=== PATIENT | male | born 1945 | race Caucasian/White ===

== ENCOUNTER 2022-08-13 13:10 | Outpatient (CLI) | payer MEDICARE, SELFPAY ==
--- NOTE | ~2022-08-13 | MM_ITS ---
EXAMINATION: MM diagnostic mammo unilat RT HISTORY: Subareolar right breast pain TECHNIQUE: Full field digital craniocaudal and mediolateral oblique views of the right breast were ob tained. A comparison for field mediolateral oblique view of the left breast was obtained. CAD analysi s was submitted and interpreted. COMPARISON: No prior mammogram is available for comparison at this institution. BREAST PARENCHYMAL COMPOSITION: The breasts are almost entirely fatty. FINDINGS: There is flame-shaped subareolar density in both breasts, right greater than left, with an appearance consistent with gynecomastia. No suspicious cystic or solid mass is identified. IMPRESSION: 1. Findings consistent with asymmetric gynecomastia on the right. Clinical follow-up is recommended. BI-RADS Category 2: Benign finding(s). Reviewed, dictated and finalized at location A. IMPRESSION: 1. Findings consistent with asymmetric gynecomastia on the right. Clinical foll ow-up is recommended. BI-RADS Category 2: Benign finding(s).
== END 2022-08-13 13:11 | disposition home or self-care (01) ==
PROVIDERS: PCP Family Medicine; Visit Provider Family Medicine
DX: N64.4 Mastodynia (principal)
CPT/HCPCS: 77065

== ENCOUNTER 2022-12-08 08:57 | Observation (INO) | payer MEDICARE, SELFPAY ==
[2022-12-08] VITALS (11 sets, daily range): BP systolic 100–136; BP diastolic 49–55; PULSE 46–66; RESP 11–18; TEMP 36.9–37; O2SAT 96–99; BMI 25.8
--- NOTE | ~2022-12-08 | CT_ITS ---
EXAMINATION: CT brain wo con DATE: 12/08/2022 09:40 INDICATION: Altered mental status TECHNIQUE: Computed tomography (CT) of the head was performed without intravenous contrast. Sagittal and coronal reconstructions were performed. The mA was adjusted according to patient size. Iterative reconstruction technique was employed. The dose-length product was 681.00 mGy-cm. COMPARISON: None FINDINGS: No acute intracranial hemorrhage, acute infarction or abnormal extra axial fluid collection. There is moderate scattered white matter hypoattenuation consistent with chronic small vessel ischemic diseas e. Symmetric prominence of the sulci and ventricles consistent with mild age-appropriate diffuse cere bral volume loss. No mass/mass effect. Changes of bilateral intraocular lens replacement. The orbits, paranasal sinuses and mastoid air cells are normal. IMPRESSION: 1. No acute intracranial process. 2. Age-related changes including mild diffuse volume loss and moderate scattered white matter hypoatt enuation consistent with chronic small vessel ischemic disease. Reviewed, dictated and finalized at location A. MS ATTORNEY IMPRESSION: 1. No acute intracranial process. 2. Age-related changes including mild diffuse volume loss and moderate scattere d white matter hypoattenuation consistent with chronic small vessel ischemic di sease.
--- NOTE | ~2022-12-08 | XR_ITS ---
XR chest 2V 12/08/2022 09:45 Indication: Weakness and fatigue. Nausea. Procedure: 2 view chest Comparison: 01/17/2013 Findings: Heart size normal. No focal air space disease, pulmonary edema, pleural effusion or suspect ed pneumothorax. No acute osseous abnormality. 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 Impression: 1: No acute cardiopulmonary disease. Reviewed, dictated and finalized at location B. PREVENTION COORDINATOR Impression: 1: No acute cardiopulmonary disease.
--- NOTE | 2022-12-08 09:13 | ECG_ITS ---
Measurements Intervals Elaine Rate: 46 P: 22 TX: 163 QRS: 51 QRSD: 95 T: 70 QT: 489 QTc: 428 Interpretive Statements SINUS BRADYCARDIA NO PREVIOUS ECG AVAILABLE FOR COMPARISON Electronically Signed On 12-08-2022 15:01:01 [employer] by Abdulaziz Wells M.D.
--- NOTE | 2022-12-08 10:03 | ED.WEAKNESS ---
HPI - Weakness General Chief complaint: Weakness <Meka Urbina PA-C - Last Filed: 12/08/22 14:02> Stated complaint: LETHARGIC AFTER BREAKFAST <Meka Urbina PA-C - Last Filed: 12/08/22 14:02> Time Seen by Provider: 12/08/22 09:12 <Meka Urbina PA-C - Last Filed: 12/08/22 14:02> Source: patient, family and EMS <RITA Landrum Last Filed: 12/08/22 14:02> Mode of arrival: EMS <RITA Landrum Last Filed: 12/08/22 14:02> Limitations: dementia <RITA Landrum Last Filed: 12/08/22 14:02> History of Present Illness HPI Narrative: This is a 77 year old male that presents to the ER for an episode of altered mentation this morning. Reportedly patient was found to be lethargic at breakfast with vomit on his clothing. Patient's daughter is at bedside who reports he has had a steady decline in his mental status over the last several weeks. Reports they saw his neurologist about a week ago and he was started on Propranolol for a worsening tremor. He lives at [facility]. They report he does deal with all of his medications independently, but they have a medication dispenser that only allows him to take the medications that he is due for onyl at the correct times. Patient has no complaints currently. <Meka Urbina PA-C - Last Filed: 12/08/22 14:02> Related Data Home medications: Home Medications Medication Instructions Recorded Confirmed donepezil 10 mg tablet 10 mg PO HS 12/08/22 12/08/22 escitalopram oxalate 20 mg tablet 20 mg PO DAILY 12/08/22 12/08/22 gabapentin 400 mg capsule 400 mg PO TID 12/08/22 12/08/22 meclizine 25 mg tablet 25 mg PO BID 12/08/22 12/08/22 memantine 10 mg tablet 10 mg PO BID 12/08/22 12/08/22 montelukast 10 mg tablet 10 mg PO DAILY 12/08/22 12/08/22 trazodone 150 mg tablet 150 mg PO HS 12/08/22 12/08/22 triamcinolone acetonide 0.1 % 0.1 applic topical BID PRN Dry Skin 12/08/22 12/08/22 topical cream <Meka Urbina PA-C - Last Filed: 12/08/22 14:02> Allergies/Adverse reactions: Allergies Allergy/AdvReac Type Severity Reaction Status Date / Time No Known Allergies Allergy Unverified 12/08/22 10:18 <Meka Urbina PA-C - Last Filed: 12/08/22 14:02> Review of Systems Review of Systems: ROS unobtainable: Yes unobtainable due to mental status (dementia) <Meka Urbina PA-C - Last Filed: 12/08/22 14:02> [facility] Past Medical History Medical History: Medical History (Updated 12/08/22 @ 13:58 by Meka Urbina PA-C) History of dementia <Meka Urbina PA-C - Last Filed: 12/08/22 14:02> Social History Social History: Social History (Updated 12/08/22 @ 10:12 by Meka Urbina PA-C) Smoking status: Former smoker Alcohol intake: former Substance use: never Spiritual care concerns: No <Meka Urbina PA-C - Last Filed: 12/08/22 14:02> Exam Narrative: GENERAL: Elderly, well-nourished, and in no acute distress. HEAD: Normocephalic, atraumatic. EYES: PERRLA and EOMI. ENT: Nares clear, no rhinorrhea or epistaxis. Mucous membranes moist. Oropharynx without tonsillar hypertrophy exudate or other lesions. Bilateral TMs pearly marley non-bulging NECK: Supple. No adenopathy or masses. CHEST: Clear to auscultation. No respiratory distress. No wheezes rales or rhonchi HEART: Regular rate and rhythm. No murmur heard. Normal peripheral pulses. ABDOMEN: Soft, nontender, nondistended, normal active bowel sounds. EXTREMITIES: Normal range of motion. No edema or obvious deformity. SKIN: Warm, dry, no rash. NEURO: No focal deficits. Alert and oriented x1. CN II-XII grossly intact PSYCH: Flat mood and affect <Meka Urbina PA-C - Last Filed: 12/08/22 14:02> Course Course Emergency Course: Patient and family updated on work-up and need for admission <Meka Urbina PA-C - Last Filed: 12/08/22 14:02> DIRECTOR INPATIENT HEADACHE PROGRAM/PA Physician Supervision Patient is a 77-year-old mal
[2022-12-08] MEDS: SODIUM CHLORIDE 0.9% IV 1,000 ML 999 ML IV CONT (10:16)
[2022-12-08 10:42] LABS: Basophils Percent Auto 0.4 % (0.2-1.2); Eosinophils Absolute Auto 0.1 K/mm3 (0-0.3); Eosinophils Percent Auto 1.8 % (0-4.4); Hematocrit 40.2 % (42.0-52.0); Immature Granulocyte Absolute 0.03 K/mm3 (0.00-0.031); Immature Granulocyte Percent A 0.4 % (0-0.5); Lymphocytes Absolute Auto 0.98 K/mm3 (0.9-3.2); Lymphocytes Percent Auto 14.6 % (18.3-44.2); Mean Corpuscular HGB Conc 32.3 g/dl (32-36); Mean Corpuscular Hemoglobin 30.4 pg (26-34); Mean Corpuscular Volume 93.9 fl (80-100); Mean Platelet Volume 9.5 fl (7.4-10.4); Monocytes Absolute Auto 0.5 K/mm3 (0.1-0.6); Monocytes Percent Auto 7.2 % (2.6-8.5); Neutrophils Absolute Auto 5.1 K/mm3 (1.3-6.7); Neutrophils Percent Auto 75.6 % (45.5-73.1); Platelet Count Result 225 k/mm3 (150-375); Red Blood Count 4.28 M/mm3 (4.6-6.20); Red Cell Distribution Width 13.2 % (11.5-14.5); White Blood Count 6.7 K/mm3 (4.5-10.0)
[2022-12-08 10:50] LABS: Magnesium 2.2 mg/dL (1.6-2.3)
[2022-12-08 10:52] LABS: Lactic Acid Reflex 1.2 mmol/L (0.7-2.0)
[2022-12-08 10:53] LABS: Alanine Aminotransferase 17 U/L (6-50); Albumin Level 4.1 g/dL (3.5-5.1); Alkaline Phosphatase 59 U/L (38-126); Anion Gap 5 mmol/L (8-16); Aspartate Amino Transferase 24 U/L (17-59); Bilirubin,Total 0.8 mg/dL (0.2-1.3); Blood Urea Nitrogen 17 mg/dL (9-20); Calcium 8.4 mg/dL (8.4-10.2); Carbon Dioxide 28 mmol/L (22-30); Chloride 101 mmol/L (98-107); Estimated CRCL calculation 64 ml/min; Estimated Glomerular Filt Rate > 60; Glucose 111 mg/dL (65-110); Potassium 4.3 mmol/L (3.4-5.0); Sodium 134 mmol/L (137-145)
[2022-12-08 11:04] LABS: Influenza A QL RT-PCR Negative (Negative); Influenza B QL RT-PCR Negative (Negative); SARS-CoV-2 RNA PCR Negative
--- NOTE | 2022-12-08 12:19 | PC.NURSE ---
Patient ambulated to the BR with standby assistance. Steady gait. Urine sample obtained.
[2022-12-08 12:24] LABS: Appearance Urine Clear (Clear); Bilirubin Urine Negative (Negative); Blood Urine Negative (Negative); Color Urine Yellow (Yellow); Glucose Urine UA Negative (Negative); Ketones Urine Negative (Negative); Leukocyte Esterase Ur Negative LEU/UL (Negative); Nitrate Urine Negative (Negative); Protein Urine 1+ mg/dL (Negative)
[2022-12-08 12:31] LABS: Add Urine Microscopic? YES; Amorphous Sediment Urine Few; Bacteria Urine Trace /hpf; Mucus Urine Heavy /lpf; Squamous Epithelial Cell Urine Rare /hpf (Few); WBC Urine 0-3 /hpf
--- NOTE | 2022-12-08 14:21 | PC.NURSE ---
This patient, Lucien Martinez, was admitted to 2 Medical Room 252-. Patient/family oriented to hospital policies and general routines including ID bracelet, bed and alarms, visiting hours, pain management, procedures, bathroom and other care routines, personal items, smoking policy, room service/diet, and visiting hours. Information on how to activate the Rapid Response Team has been discussed. Patient/Family are encouraged to report perceived risks to care and to ask questions if they do not understand what they are told or what they should do.
--- NOTE | 2022-12-08 19:12 | PM.IMHP ---
H&P: HPI History of Present Illness Date/Time: 12/08/22 19:12 Chief Complaint: Weakness Narrative: This is a 77-year-old male patient emergency room with complaints of altered mental status. The patient does have a history of dementia. However his mentation was altered this morning. The patient was found to be very lethargic echo breakfast with vomit on his clothing. The patient's daughter stated that his mental status has been declining over the last several weeks. The patient lives at [facility]. The patient was recently started on propranolol for hand tremors. It was reported that the patient does not had was medication and that the patient has a medication dispenser which only allows the patient's take his medication at a certain time. The patient has expressive aphasia. His H&H is 13.0 and 40.2. Neutrophils 75.6. Sodium 134. He was negative for influenza A/B and COVID. Head CT was read as the following1. No acute intracranial process. 2. Age-related changes including mild diffuse volume loss and moderate scattered white matter hypoattenuation consistent with chronic small vessel ischemic disease. Patient's EKG was consistent with sinus bradycardia. EKG shows is sinus bradycardia. Patient's heart rate is now in the 60s. Patient is awake and talkative. The patient is being admitted for observation status on the date of service of 12/08/2022. Review of Systems Review of Systems: See HPI All systems reviewed & are unremarkable except as noted in HPI and below Constitutional: Constitutional: Reports as per HPI and Reports no additional constitutional complaints Eyes: Eyes: Reports as per HPI and Reports no additional eye complaints ENT: Reports system reviewed and no additional complaints, except as documented and Reports Normal hearing present Cardiovascular: Cardiovascular: Reports no additional cardiovascular complaints Respiratory: Respiratory: Reports no additional respiratory complaints and Reports no additional respiratory complaints Gastrointestinal: Gastrointestinal: Reports as per HPI and Reports no additional gastrointestinal complaints Musculoskeletal: Musculoskeletal: Reports no additional musculoskeletal complaints Integumentary/Breasts: Skin/Breast: Reports system reviewed and no additional complaints, except as docu and Reports as per HPI Neurologic: Reports system reviewed and no additional complaints, except as documented, Reports as per HPI and Reports Normal hearing present Psychiatric: Psychiatric: Reports no additional psychiatric complaints and Reports as per HPI Endocrine: Endocrine: Reports no additional endocrine complaints Hematologic/Lymphatic: Hematologic/Lymphatic: Reports no additional hematologic/lymphatic complaints Allergic/Immunologic: Allergic/Immunologic: Reports no additional allergic/immunologic complaints [facility] Past Medical History Medical History (Updated 12/08/22 @ 23:43 by Yakelin Carlos NP) Asthma Dementia Depression with anxiety History of dementia Intention tremor Vertigo Surgical History Surgical History (Updated 12/08/22 @ 23:31 by Yakelin Carlos NP) H/O cataract extraction H/O Spinal surgery Family History Family History (Updated 12/08/22 @ 23:32 by Yakelin Carlos NP) Unknown No problems noted. Social History Social History (Updated 12/08/22 @ 23:34 by Yakelin Carlos NP) Social History: The patient is . He has 2 children. 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 He has 2 daughters listed as his contacts and Agata Doyle is the power erisa attorney. Code status full code Smoking status: Former smoker Alcohol intake: former Substance use: never Spiritual care concerns: No Meds Home Medications and Allergies Home Medications Medication Instructions Recorded Confirmed Type donepezil 10 mg tablet 10 mg PO HS 12/08/22 12/08/22 History escitalopram oxalate 20 mg tablet 20 m
[2022-12-09] VITALS (8 sets, daily range): BP systolic 122–131; BP diastolic 51–65; PULSE 61–72; RESP 16–18; TEMP 36.6–37.2; O2SAT 97–98
[2022-12-09] MEDS: traZODone HCL 50 MG TABLET 150 MG PO (00:07)
[2022-12-09] MEDS: MEMANTINE 10 MG TABLET PO ×2 (00:08→08:06)
[2022-12-09] MEDS: DONEPEZIL HCL 10 MG TABLET PO (00:09)
[2022-12-09 06:02] LABS: Basophils Percent Auto 0.3 % (0.2-1.2); Eosinophils Absolute Auto 0.1 K/mm3 (0-0.3); Eosinophils Percent Auto 1.8 % (0-4.4); Hematocrit 36.4 % (42.0-52.0); Hemoglobin 12.2 g/dL (14.0-18.0); Immature Granulocyte Absolute 0.02 K/mm3 (0.00-0.031); Immature Granulocyte Percent A 0.3 % (0-0.5); Lymphocytes Absolute Auto 1.56 K/mm3 (0.9-3.2); Lymphocytes Percent Auto 23.4 % (18.3-44.2); Mean Corpuscular HGB Conc 33.5 g/dl (32-36); Mean Corpuscular Hemoglobin 30.4 pg (26-34); Mean Corpuscular Volume 90.8 fl (80-100); Mean Platelet Volume 9.8 fl (7.4-10.4); Monocytes Absolute Auto 0.7 K/mm3 (0.1-0.6); Monocytes Percent Auto 10.2 % (2.6-8.5); Neutrophils Absolute Auto 4.3 K/mm3 (1.3-6.7); Platelet Count Result 209 k/mm3 (150-375); Red Blood Count 4.01 M/mm3 (4.6-6.20); Red Cell Distribution Width 12.7 % (11.5-14.5); White Blood Count 6.7 K/mm3 (4.5-10.0)
--- NOTE | 2022-12-09 06:06 | PC.NURSE ---
Patient frequently leaving bed to quickly for staff to reach room and does not comprehend safety precautions in place, patient is unable to utilize SCDs safely, Dr Emanuel notified and order has been discontinued.
[2022-12-09 06:15] LABS: Alanine Aminotransferase 17 U/L (6-50); Albumin Level 3.8 g/dL (3.5-5.1); Alkaline Phosphatase 58 U/L (38-126); Anion Gap 3 mmol/L (8-16); Aspartate Amino Transferase 22 U/L (17-59); Bilirubin,Total 0.7 mg/dL (0.2-1.3); Blood Urea Nitrogen 12 mg/dL (9-20); Calcium 8.4 mg/dL (8.4-10.2); Carbon Dioxide 26 mmol/L (22-30); Chloride 102 mmol/L (98-107); Estimated CRCL calculation 72 ml/min; Estimated Glomerular Filt Rate > 60; Glucose 98 mg/dL (65-110); Potassium 3.6 mmol/L (3.4-5.0); Sodium 131 mmol/L (137-145)
[2022-12-09 06:17] LABS: Lactic Acid Reflex 0.9 mmol/L (0.7-2.0)
--- NOTE | 2022-12-09 08:02 | PM.IMPN ---
Progress Note: A&P Assessment and Plan (1) Vertigo: Code(s): R42 - Dizziness and giddiness Status: Acute Assessment and Plan: Continue meclizine (2) Intention tremor: Code(s): G25.2 - Other specified forms of tremor Status: Acute Assessment and Plan: Discontinue propanolol, Neurology consult to consider primidone? (3) Bradycardia, sinus: Code(s): R00.1 - Bradycardia, unspecified Status: Acute Assessment and Plan: Profoundly symptomatic with lethargy and altered mentation, discontinue propanolol, monitor telemetry (4) Dementia: Code(s): F03.90 - Unspecified dementia, unspecified severity, without behavioral disturbance, psychotic disturbance, mood disturbance, and anxiety Status: Acute Assessment and Plan: Appears to be at baseline mentation, continue Namenda and Aricept (5) Depression with anxiety: Code(s): F41.8 - Other specified anxiety disorders Status: Acute Assessment and Plan: Continue home Lexapro Plan DVT prophylaxis with SCDs GI prophylaxis not indicated Code status full code, currently unknown Subjective Date/time seen: 12/09/22 08:02 Interval history: No overnight events noted. No chest pain or shortness of breath. No nausea, vomiting or diarrhea. No fevers or chills. Patient has expressive aphasia, symptoms discussed with family at bedside. They are eager to go home, they would like a new medication for the tremor as it is distracting. Review of Systems Review of Systems: ROS unobtainable: Yes unobtainable due to mental status Exam Narrative: General: No acute distress, alert and oriented per baseline HEENT: Atraumatic, normocephalic, mucous membranes moist CV: Regular rate and rhythm, S1, S2 Lungs: Clear to auscultation bilaterally, no rales or crackles noted, no wheezes, good air entry Abdomen: Soft, nontender, nondistended Extremities: Normal to inspection Skin: No rashes noted, no lesions or wounds seen Psych: Euthymic, normal affect Neuro: Expressive aphasia noted, cranial nerves 2-12 grossly intact, strength +5/5 upper and lower extremities bilaterally, essential pill rolling tremor noted of right upper extremity, resolved with intentional motion Objective Data Vital Signs Vital Signs: Vital Signs - 24 hr 12/08/22 09:07 12/08/22 09:52 12/08/22 10:14 Temperature Pulse Rate 46 L 46 L 49 L Respiratory Rate 12 18 Blood Pressure 104/51 L 100/55 L Pulse Oximetry 97 99 Oxygen Delivery Room Air 12/08/22 12:39 12/08/22 12:59 12/08/22 13:00 Temperature Pulse Rate 56 L 60 66 Respiratory Rate 11 L 13 16 Blood Pressure Pulse Oximetry 99 99 99 Oxygen Delivery 12/08/22 13:15 12/08/22 14:26 12/08/22 14:30 Temperature 98.5 F Pulse Rate 63 58 L Respiratory Rate 16 14 Blood Pressure 136/49 L Pulse Oximetry 97 98 Oxygen Delivery Room Air 12/08/22 19:24 12/08/22 16:00 12/09/22 05:07 Temperature 98.6 F 97.8 F Pulse Rate 60 65 63 Respiratory Rate 16 16 Blood Pressure 123/53 L 131/51 L Pulse Oximetry 96 97 Oxygen Delivery 12/08/22 20:00 12/09/22 00:00 12/09/22 04:00 Temperature Pulse Rate 58 L 61 72 Respiratory Rate Blood Pressure Pulse Oximetry Oxygen Delivery Intake/Output Intake/Output: Intake & Output 12/06/22 12/07/22 12/08/22 12/09/22 23:59 23:59 23:59 23:59 Intake Total 1570 200 Output Total 500 Balance 1570 -300 Meds/Results Medications: Active Medications Generic Name Dose Route Start Last Admin Trade Name Freq PRN Reason Stop Dose Admin Donepezil HCl 10 mg 12/08/22 23:35 12/09/22 00:09 Donepezil Hcl 10 Mg Tablet PO 10 mg HS SHANEL Administration Escitalopram Oxalate 20 mg 12/09/22 09:00 Escitalopram Oxalate 10 Mg Tablet PO DAILY SHANEL Gabapentin 400 mg 12/09/22 09:00 Gabapentin 400 Mg Capsule PO TID SHANEL Meclizine HCl
[2022-12-09] MEDS: GABAPENTIN 400 MG CAPSULE PO ×3 (08:05→16:51)
[2022-12-09] MEDS: ESCITALOPRAM OXALATE 10 MG TABLET 20 MG PO (08:05)
[2022-12-09] MEDS: MONTELUKAST SODIUM 10 MG TABLET PO (08:06)
[2022-12-09] MEDS: MECLIZINE HCL 25 MG TABLET PO ×2 (08:06→16:51)
--- NOTE | 2022-12-09 11:33 | WPDNEURCNPN ---
Assessment and Plan Assessment and plan (1) Dementia: Code(s): F03.90 - Unspecified dementia, unspecified severity, without behavioral disturbance, psychotic disturbance, mood disturbance, and anxiety Status: Acute (2) Adverse effect of beta-jami: Qualifiers: Encounter type: initial encounter Qualified Code(s): T44.7X5A - Adverse effect of beta-adrenoreceptor antagonists, initial encounter Code(s): T44.7X5A - Adverse effect of beta-adrenoreceptor antagonists, initial encounter Status: Acute Plan 1 reportedly patient was recently started on Inderal for the tremor which produce a change in his mental status at this particular time is not receiving that medication he does not have obvious coarse tremor is mental status is fairly normal I will reexamine him tomorrow and if necessary further discussion and advised him what other treatment can be given depending if he has tremors here Consult date: 12/09/22 HPI: Lucien Martinez is a 77 year old male admitted to the hospital through the emergency room for an episode of change in the mental status in the morning when reportedly was found to be lethargic at breakfast and then vomited on his clothing as per the information available from the patient's daughter he has had a steady decline in his mental status over the last several weeks he was started on propranolol for a worsening tremor he lives at [facility] and does deal with all medication independently he does have a dispenser that allows him to take the medication that he is due for only at that correct time. He does take multiple medications which include donepezil 10 mg at night [place] situ low prime 20 mg daily gabapentin 400 mg 3 times a day meclizine 25 mg twice a day memantine 10 mg twice a day trazodone 150 mg at night and topical cream in addition to montelukast 10 mg daily is not allergic to any medication. Does have ongoing history of dementia, is a former alcohol intake, former smoker, and initial exam in the Emergency Room otherwise was nonfocal. On initial evaluation his vital signs were normal initial CT scan of the head was negative routine CBC was fairly normal so as the comprehensive lab and he was also negative for influenza AB and covid, UA was normal chest x-ray was negative CT of the head was negative except the diffuse volume loss and scattered white matter hypoattenuation consistent with the chronic small-vessel ischemic disease. Review of Systems Review of Systems: All systems reviewed & are unremarkable except as noted in HPI and below PMFSH Past Medical History Medical History (Updated 12/09/22 @ 11:31 by Yessy Newsome DO) Asthma Dementia Depression with anxiety History of dementia Intention tremor Vertigo Surgical History Surgical History (Updated 12/08/22 @ 23:31 by Yakelin Carlos NP) H/O cataract extraction H/O Spinal surgery Family History Family History (Updated 12/08/22 @ 23:32 by Yakelin Carlos NP) Unknown No problems noted. Social History Social History (Updated 12/08/22 @ 23:34 by Yakelin Carlos NP) Social History: The patient is . He has 2 children. 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 He has 2 daughters listed as his contacts and Agata Doyle is the power attorney recruiter. Code status full code Smoking status: Former smoker Alcohol intake: former Substance use: never Spiritual care concerns: No Meds Home Medications and Allergies Home Medications Medication Instructions Recorded Confirmed Type donepezil 10 mg tablet 10 mg PO HS 12/08/22 12/08/22 History escitalopram oxalate 20 mg tablet 20 mg PO DAILY 12/08/22 12/08/22 History gabapentin 400 mg capsule 400 mg PO TID 12/08/22 12/08/22 History meclizine 25 mg tablet 25 mg PO BID 12/08/22 12/08/22 History memantine 10 mg tablet 10 mg PO BID 12/08/22 12/08/22 History montelukast 10 mg tablet 10 mg PO DAILY 12/08/22 12/08/22 Hi
--- NOTE | 2022-12-09 13:10 | PC.NURSE ---
On 12/09/22, the student, [Aislinn Hayes], provided care and completed [facility] documentation on this patient. I have reviewed the student's documentation and agree with the findings.
--- NOTE | 2022-12-09 14:46 | WPDNEUROPN ---
Subjective Date/time seen: 12/09/22 14:46 Interval history: Had a discussion with the family member who wanted to discuss with me about new medication for his tremor. Medications were started by other physician which created a change in the mental status and he was brought to this hospital, I advised them this is not the right time to start the new medication I have seen him and they can bring him back to the office in 1 month then we will re-examine and discussed what other medication can be tried if he has persistent tremors. Objective Data Vital Signs Vital Signs: Vital Signs - 24 hr 12/08/22 19:24 12/08/22 16:00 12/09/22 05:07 Temperature 37.0 C 36.6 C Pulse Rate 60 65 63 Respiratory Rate 16 16 Blood Pressure 123/53 L 131/51 L Pulse Oximetry 96 97 Oxygen Delivery 12/08/22 20:00 12/09/22 00:00 12/09/22 04:00 Temperature Pulse Rate 58 L 61 72 Respiratory Rate Blood Pressure Pulse Oximetry Oxygen Delivery 12/09/22 10:42 12/09/22 08:00 12/09/22 08:00 Temperature Pulse Rate 69 Respiratory Rate Blood Pressure Pulse Oximetry Oxygen Delivery Room Air Room Air 12/09/22 12:00 12/09/22 13:57 Temperature 37.2 C Pulse Rate 67 67 Respiratory Rate 18 Blood Pressure 122/65 Pulse Oximetry 98 Oxygen Delivery Intake/Output Intake/Output: Intake & Output 12/06/22 12/07/22 12/08/22 12/09/22 23:59 23:59 23:59 23:59 Intake Total 1570 680 Output Total 500 Balance 1570 180 Meds/Results Medications: Active Medications Generic Name Dose Route Start Last Admin Trade Name Freq PRN Reason Stop Dose Admin Donepezil HCl 10 mg 12/08/22 23:35 12/09/22 00:09 Donepezil Hcl 10 Mg Tablet PO 10 mg HS SHANEL Administration Escitalopram Oxalate 20 mg 12/09/22 09:00 12/09/22 08:05 Escitalopram Oxalate 10 Mg Tablet PO 20 mg DAILY SHANEL Administration Gabapentin 400 mg 12/09/22 09:00 12/09/22 12:30 Gabapentin 400 Mg Capsule PO 400 mg TID SHANEL Administration Meclizine HCl 25 mg 12/09/22 09:00 12/09/22 08:06 Meclizine Hcl 25 Mg Tablet PO 25 mg BID SHANEL Administration Memantine 10 mg 12/08/22 23:35 12/09/22 08:06 Memantine 10 Mg Tablet PO 10 mg Q12HR SHANEL Administration Montelukast Sodium 10 mg 12/09/22 09:00 12/09/22 08:06 Montelukast Sodium 10 Mg Tablet PO 10 mg DAILY SHANEL Administration Trazodone HCl 150 mg 12/08/22 23:25 12/09/22 00:07 Trazodone Hcl 50 Mg Tablet PO 150 mg HS SHANEL Administration Radiology Results: ITS Impressions Chest X-Ray 12/08/22 09:46 Impression: 1: No acute cardiopulmonary disease. Head CT 12/08/22 09:48 IMPRESSION: 1. No acute intracranial process. 2. Age-related changes including mild diffuse volume loss and moderate scattered white matter hypoattenuation consistent with chronic small vessel ischemic disease. Labs Labs: Laboratory Results - last 24 hr 12/09/22 12/09/22 12/09/22 05:24 05:24 05:24 WBC 6.7 RBC 4.01 L Hgb 12.2 L Hct 36.4 L MCV 90.8 MCH 30.4 MCHC 33.5 RDW 12.7 Plt Count 209 MPV 9.8 Immature Gran % (Auto) 0.3 Neut % (Auto) 64.0 Lymph % (Auto) 23.4 [place] % (Auto) 10.2 H Eos % (Auto) 1.8 Baso % (Auto) 0.3 Lymph # (Auto) 1.56 [place] # (Auto) 0.7 H Eos # (Auto) 0.1 Baso # (Auto) 0.0 Abs Immat Gran (auto) 0.02 Absolute Neuts (auto) 4.3 Absolute Nucleated RBC 0.0 Nucleated RBC % 0.0 Sodium 131 L Potassium 3.6 Chloride 102 Carbon Dioxide 26 Anion Gap 3 L BUN 12 D Creatinine 0.80 Estim Creat Clear Calc 72 Estimated GFR > 60 Glucose 98 Lactic Acid 0.9 Calcium 8.4 Magnesium 2.0 Total Bilirubin 0.7 AST 22 ALT 17 Alkaline Phosphatase 58 Total Protein 7.0 Albumin 3.8 TSH (Reflex) 12/09/22 05:24 WBC RBC Hgb Hct MCV MCH MCHC RDW Plt Count MPV Immature Gra
--- NOTE | 2022-12-09 16:41 | PM.DS ---
DS: Admitting Diagnosis Discharge Date 12/09/22 Admitting Diagnosis lethargy DS: Discharge Diagnosis Discharge Diagnosis (1) Vertigo: Code(s): R42 - Dizziness and giddiness Status: Acute Assessment and Plan: Continue meclizine (2) Intention tremor: Code(s): G25.2 - Other specified forms of tremor Status: Acute Assessment and Plan: Discontinue propanolol, Neurology consult to consider primidone? (3) Bradycardia, sinus: Code(s): R00.1 - Bradycardia, unspecified Status: Acute Assessment and Plan: Profoundly symptomatic with lethargy and altered mentation, discontinue propanolol, monitor telemetry (4) Dementia: Code(s): F03.90 - Unspecified dementia, unspecified severity, without behavioral disturbance, psychotic disturbance, mood disturbance, and anxiety Status: Acute Assessment and Plan: Appears to be at baseline mentation, continue Namenda and Aricept (5) Depression with anxiety: Code(s): F41.8 - Other specified anxiety disorders Status: Acute Assessment and Plan: Continue home Lexapro Plan DVT prophylaxis with SCDs GI prophylaxis not indicated Code status full code, currently unknown DS: Summary Hospital Course Hospital Course: 77-year-old male with past medical history significant for dementia, depression, tremor, vertigo is presenting with lethargy. He was found to be in sinus bradycardia likely from the propanolol which is a new medication that was started for his tremor. This was discontinued and symptoms resolved. Neurology was consulted and recommended follow-up outpatient. They did not want to start a new medication at this time. See above for details. Time Spent with Patient Time attestation: Total time spent providing and/or coordinating discharge services: Exam Narrative: General: No acute distress, alert and oriented per baseline HEENT: Atraumatic, normocephalic, mucous membranes moist CV: Regular rate and rhythm, S1, S2 Lungs: Clear to auscultation bilaterally, no rales or crackles noted, no wheezes, good air entry Abdomen: Soft, nontender, nondistended Extremities: Normal to inspection Skin: No rashes noted, no lesions or wounds seen Psych: Euthymic, normal affect Neuro: Expressive aphasia noted, cranial nerves 2-12 grossly intact, strength +5/5 upper and lower extremities bilaterally, essential pill rolling tremor noted of right upper extremity, resolved with intentional motion DS: Data Data Completed and Pending Labs on day of discharge: Labs from last 24 hours 12/09/22 12/09/22 12/09/22 05:24 05:24 05:24 WBC RBC Hgb Hct MCV MCH MCHC RDW Plt Count MPV Immature Gran % (Auto) Neut % (Auto) Lymph % (Auto) [place] % (Auto) Eos % (Auto) Baso % (Auto) Lymph # (Auto) [place] # (Auto) Eos # (Auto) Baso # (Auto) Abs Immat Gran (auto) Absolute Neuts (auto) Absolute Nucleated RBC Nucleated RBC % Sodium 131 L Potassium 3.6 Chloride 102 Carbon Dioxide 26 Anion Gap 3 L BUN 12 D Creatinine 0.80 Estim Creat Clear Calc 72 Estimated GFR > 60 Glucose 98 Lactic Acid 0.9 Calcium 8.4 Magnesium 2.0 Total Bilirubin 0.7 AST 22 ALT 17 Alkaline Phosphatase 58 Total Protein 7.0 Albumin 3.8 TSH (Reflex) 1.800 12/09/22 05:24 WBC 6.7 RBC 4.01 L Hgb 12.2 L Hct 36.4 L MCV 90.8 MCH 30.4 MCHC 33.5 RDW 12.7 Plt Count 209 MPV 9.8 Immature Gran % (Auto) 0.3 Neut % (Auto) 64.0 Lymph % (Auto) 23.4 [place] % (Auto) 10.2 H Eos % (Auto) 1.8 Baso % (Auto) 0.3 Lymph # (Auto) 1.56 [place] # (Auto) 0.7 H Eos # (Auto) 0.1 Baso # (Auto) 0.0 Abs Immat Gran (auto) 0.02 Absolute Neuts (auto) 4.3 Absolute Nucleated RBC 0.0 Nucleated RBC % 0.0 Sodium Potassium Chloride Carbon Dioxide Anion Gap BUN Creatinine E
== END 2022-12-09 17:14 | disposition home or self-care (01) ==
LOC: ANHED 10:07 → ANH2MED 13:58
PROVIDERS: Nurse Practitioner; Admitting Provider Chiropractor; Emergency Provider Physician Assistant; PCP Family Medicine; Visit Provider Student in an Organized Health Care Education/Training Program
DX: R42 Dizziness and giddiness (principal); G25.2 Other specified forms of tremor; R00.1 Bradycardia, unspecified; T44.7X5A Adverse effect of beta-adrenoreceptor antagonists, initial encounter; F03.90 Unspecified dementia, unspecified severity, without behavioral disturbance, psychotic disturbance, mood disturbance, and anxiety; F41.8 Other specified anxiety disorders; J45.909 Unspecified asthma, uncomplicated; Z20.822 Contact with and (suspected) exposure to COVID-19; R53.1 Weakness; R41.82 Altered mental status, unspecified; R53.83 Other fatigue; R90.82 White matter disease, unspecified; Z87.891 Personal history of nicotine dependence; Z79.52 Long term (current) use of systemic steroids; Z79.899 Other long term (current) drug therapy
CPT/HCPCS: 36415; 70450; 71046; 80053; 81001; 83605; 83735; 84443; 85025; 87636; 93005; 96360; 99285; A9270; G0378; J7030

== ENCOUNTER 2022-12-27 15:32 | Emergency (ER) | payer MEDICARE, SELFPAY ==
[2022-12-27] VITALS (24 sets, daily range): BP systolic 127–140; BP diastolic 59–76; PULSE 74–87; RESP 11–23; TEMP 36.8; O2SAT 95–99
--- NOTE | ~2022-12-27 | CT_ITS ---
EXAMINATION: CT brain wo con DATE: 12/27/2022 19:24 INDICATION: AMS . TECHNIQUE: Computed tomography (CT) of the head was performed without intravenous contrast. The mA wa s adjusted according to patient size. Iterative reconstruction technique was employed. The dose-lengt h product was 1664.67 mGy-cm. COMPARISON: 12/08/2022. FINDINGS: No acute intracranial hemorrhage or extra-axial fluid collection. No hydrocephalus, mass, or herniation. No acute ischemic infarct. Unremarkable dural venous sinus attenuation. No acute osseous abnormality. The aerated spaces are clear. Moderate atrophy and chronic white matter change. Atherosclerotic intracranial calcification. Bilater al lens replacements. IMPRESSION: No acute intracranial process. Reviewed, dictated and finalized at location K.
[2022-12-27 16:19] LABS: Basophils Percent Auto 0.2 % (0.2-1.2); Eosinophils Percent Auto 0.3 % (0-4.4); Hematocrit 39.3 % (42.0-52.0); Hemoglobin 12.9 g/dL (14.0-18.0); Immature Granulocyte Absolute 0.02 K/mm3 (0.00-0.031); Immature Granulocyte Percent A 0.2 % (0-0.5); Lymphocytes Absolute Auto 0.49 K/mm3 (0.9-3.2); Lymphocytes Percent Auto 5.5 % (18.3-44.2); Mean Corpuscular HGB Conc 32.8 g/dl (32-36); Mean Corpuscular Hemoglobin 30.5 pg (26-34); Mean Corpuscular Volume 92.9 fl (80-100); Mean Platelet Volume 9.6 fl (7.4-10.4); Monocytes Absolute Auto 0.8 K/mm3 (0.1-0.6); Monocytes Percent Auto 8.6 % (2.6-8.5); Neutrophils Absolute Auto 7.5 K/mm3 (1.3-6.7); Neutrophils Percent Auto 85.2 % (45.5-73.1); Platelet Count Result 188 k/mm3 (150-375); Red Blood Count 4.23 M/mm3 (4.6-6.20); Red Cell Distribution Width 13.2 % (11.5-14.5); White Blood Count 8.8 K/mm3 (4.5-10.0)
[2022-12-27 16:23] LABS: Alanine Aminotransferase 20 U/L (6-50); Alkaline Phosphatase 70 U/L (38-126); Anion Gap 5 mmol/L (8-16); Aspartate Amino Transferase 22 U/L (17-59); Bilirubin,Total 0.8 mg/dL (0.2-1.3); Blood Urea Nitrogen 14 mg/dL (9-20); Calcium 8.4 mg/dL (8.4-10.2); Carbon Dioxide 25 mmol/L (22-30); Chloride 103 mmol/L (98-107); Estimated Glomerular Filt Rate > 60; Glucose 100 mg/dL (65-110); Potassium 3.7 mmol/L (3.4-5.0); Sodium 133 mmol/L (137-145)
[2022-12-27 16:29] LABS: INR 1.1; Prothrombin Time 13.7 Seconds (11.1-14.7)
--- NOTE | 2022-12-27 16:29 | ED.AMS ---
HPI - Altered Mental Status General Chief Complaint: Altered Mental Status Stated Complaint: fever, ams Time Seen by Provider: 12/27/22 15:44 History of Present Illness HPI narrative: Patient is a 77-year-old male with a history of dementia presenting with altered mental status. Patient's daughter is at bedside and states that he is normally ANO x2. States that he is able to follow basic commands. Today she went to pick him up from independent living to take him to a doctor's appointment. Patient did not answer the door very quickly so she went inside. States that she then found him leaning against the wall in his hallway. States that he is normally steady on his feet. States that he was able to sit down on a chair but was not able to follow commands to scoot himself back. Again states this is abnormal for him. She then went into his bathroom and noticed that there was urine on the floor as if he had been incontinent. No slurred speech, facial droop, focal weakness noted. Patient denies any complaints. He denies headache, chest pain, shortness of breath, abdominal pain, nausea, diarrhea. History is limited secondary to baseline dementia. Daughter reports he has been recently treated with steroids for a rash on his back. Related Data Home Medications Medication Instructions Recorded Confirmed donepezil 10 mg tablet 10 mg PO HS 12/08/22 12/08/22 escitalopram oxalate 20 mg tablet 20 mg PO DAILY 12/08/22 12/08/22 gabapentin 400 mg capsule 400 mg PO TID 12/08/22 12/08/22 meclizine 25 mg tablet 25 mg PO BID 12/08/22 12/08/22 memantine 10 mg tablet 10 mg PO BID 12/08/22 12/08/22 montelukast 10 mg tablet 10 mg PO DAILY 12/08/22 12/08/22 trazodone 150 mg tablet 150 mg PO HS 12/08/22 12/08/22 triamcinolone acetonide 0.1 % 0.1 applic topical BID PRN Dry Skin 12/08/22 12/08/22 topical cream Allergies Allergy/AdvReac Type Severity Reaction Status Date / Time No Known Allergies Allergy Unverified 12/08/22 10:18 Review of Systems Review of Systems: ROS unobtainable: Yes unobtainable due to medical condition and other (baseline dementia) [facility] Past Medical History Medical History Asthma Dementia Depression with anxiety History of dementia Intention tremor Vertigo Surgical History Surgical History H/O cataract extraction H/O Spinal surgery Family History Family History Unknown No problems noted. Social History Social History Social History: The patient is . He has 2 children. 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 He has 2 daughters listed as his contacts and Agata Doyle is the power j2ee android developer. Code status full code Smoking status: Former smoker Alcohol intake: former Substance use: never Spiritual care concerns: No Exam Narrative: GENERAL: Chronically ill-appearing, elderly gentleman in no acute distress HEAD: Normocephalic, atraumatic. EYES: PERRLA and EOMI. ENT: Nares clear, no rhinorrhea or epistaxis. Mucous membranes moist. NECK: Supple. CHEST: Clear to auscultation. No respiratory distress. HEART: Regular rate and rhythm ABDOMEN: Soft, nontender, nondistended EXTREMITIES: Normal range of motion. No edema. SKIN: Warm, dry, several circular nontender erythematous lesions on the patient's back, no bulla, all of these lesions are well-circumscribed, no evidence of cellulitis, no skin sloughing NEURO: No focal deficits. Alert and oriented x1. PSYCH: Cooperative Course Vital Signs Vital signs: Vital Signs Temperature 98.3 F 12/27/22 15:32 Pulse Rate 76 12/27/22 15:32 Respiratory Rate 15 12/27/22 15:32 Blood Pressure 127/59 L 12/27/22 15:32 Pulse Oximetry 98 12/27/22 15:32 Oxygen Delivery Room Air 12/27/22 15:32 Te
[2022-12-27 16:30] LABS: Partial Thromboplastin Time 25.8 SECONDS (22.3-36.8)
[2022-12-27 16:32] LABS: Appearance Urine Clear (Clear); Bacteria Urine None Seen /hpf; Bilirubin Urine Negative (Negative); Blood Urine Negative (Negative); Color Urine Yellow (Yellow); Glucose Urine UA Negative (Negative); Ketones Urine 1+ mg/dL (Negative); Leukocyte Esterase Ur Negative LEU/UL (Negative); Nitrate Urine Negative (Negative); Non Pathogenic Casts 0-2; Protein Urine Trace mg/dL (Negative); RBC Urine 0-2 /hpf (0-2); Specific Grav Ur 1.022 (1.001-1.035); Squamous Epithelial Cell Urine None seen /hpf (Few); WBC Urine 0-5 /hpf; pH Urine 7.5 (5.0-9.0)
[2022-12-27] MEDS: SODIUM CHLORIDE 0.9% IV 1,000 ML 999 ML IV CONT (16:54)
[2022-12-27 16:57] LABS: Add Urine Microscopic? YES
[2022-12-27 17:16] LABS: Troponin I < 0.012 ng/mL (0.000-0.034)
--- NOTE | 2022-12-27 18:30 | PC.NURSE ---
Patient off unit to CT>
--- NOTE | 2022-12-27 19:06 | PC.NURSE ---
Patient report given to TIANA Brewster. All questions answered and care of patient transferred.
[2022-12-27 20:15] LABS: Troponin I < 0.012 ng/mL (0.000-0.034)
--- NOTE | 2022-12-27 21:30 | PC.NURSE ---
Pt ambulated down hallway of ED with assist x1, pt able to bear weight and had shuffling gait that daughter reported was different. No issues during ambulation. Pt assisted back into bed and Dr. Saxena made aware of ambulation test. Food provided to room and daughter stated she would help pt with food.
== END 2022-12-27 22:34 ==
PROVIDERS: Emergency Provider Emergency Medicine; PCP Family Medicine
DX: F03.90 Unspecified dementia, unspecified severity, without behavioral disturbance, psychotic disturbance, mood disturbance, and anxiety (principal); R41.82 Altered mental status, unspecified; J45.909 Unspecified asthma, uncomplicated; F41.8 Other specified anxiety disorders
CPT/HCPCS: 36415; 70450; 80053; 81001; 84484; 85025; 85610; 85730; 96360; 96361; 99284; J7030

== ENCOUNTER → 2023-01-31 09:10 | Outpatient (CLI) | payer MEDICARE, SELFPAY ==
--- NOTE | ~2023-01-31 | MR_ITS ---
MRI of the brain Clinical History: TIA, Alzheimer's disease Technique: Axial and sagittal T1-weighted images were acquired. These were followed by axial T2-weigh shelton, diffusion weighted, gradient, and FLAIR images. Findings: 3 mm focal acute infarct with restricted diffusion noted in the left frontal periventricula r white matter (axial diffusion image 14). No intracranial hemorrhage or mass lesion seen otherwise. There are extensive chronic white matter changes throughout the periventricular white matter bilatera lly. Ventricles and subarachnoid spaces are dilated. Orbits are unremarkable. Paranasal sinuses and right mastoid air cells are clear. Small amount of fluid present in left mastoid air cells. Major intracran ial flow voids appear intact. Sagittal midline structures are intact. IMPRESSION: 3 mm focal acute infarct in the left frontal periventricular white matter. Extensive chronic microvascular ischemic changes and mild to moderate generalized atrophy. Reviewed, dictated and finalized at [facility]. IMPRESSION: 3 mm focal acute infarct in the left frontal periventricular white matter. Extensive chronic microvascular ischemic changes and mild to moderate generaliz ed atrophy.
== END ==
PROVIDERS: PCP Family Medicine; Visit Provider Family Medicine
DX: I63.81 Other cerebral infarction due to occlusion or stenosis of small artery (principal); I67.82 Cerebral ischemia; G30.9 Alzheimer's disease, unspecified; F02.80 Dementia in other diseases classified elsewhere, unspecified severity, without behavioral disturbance, psychotic disturbance, mood disturbance, and anxiety; G45.9 Transient cerebral ischemic attack, unspecified
CPT/HCPCS: 70551

== ENCOUNTER 2023-04-20 23:12 | Observation (INO) | payer MEDICARE, SELFPAY ==
--- NOTE | ~2023-04-20 | CT_ITS ---
Noncontrast CT scan of the cervical spine Technique: Multiple contiguous axial [address] images of the cervical spine were obtained and rec onstructed in 2D sagittal and coronal planes on the acquisition scanner. Dose reduction technique was used on this scan by utilizing automated exposure control, adjustment of the mA and/or kV according to patient size. The dose-length product (DLP) was 503.66 mGy-cm. Clinical History: Pain Findings: No fracture seen. There is a 4 mm anterolisthesis of C7 over T1. There is severe degenerati ve disc narrowing at C3-C4 and C6-C7, with moderate degenerative disc narrowing at C5-C6. There is as sociated uncovertebral degenerative changes, most notably at C6-C7. There is extensive facet joint ar thropathy in the cervical spine. There is probable right neural foraminal narrowing at C2-C3 related to right-sided facet arthropathy. Left neural foramen preserved. No central canal stenosis. At C3-C4, there is bilateral facet arthropathy, right worse than left, resulting in bilateral neural foraminal narrowing, right worse than left. No definite central canal stenosis. At C4-C5, there is mild left facet arthropathy. Probable minimal left neural foraminal narrowing. Rig ht neural foramen preserved. Probable minimal disc bulge without piper central canal stenosis. At C5-C6, there is bilateral facet arthropathy, left worse than right, with bilateral neural foramina l narrowing, left worse than right. No definite central canal stenosis. At C6-C7, there is bilateral neural foraminal narrowing, right worse than left. There is central disc ossify complex resulting in moderate to severe canal stenosis and cord compression. No prevertebral soft tissue swelling. Impression: No fracture of the cervical spine. Moderate to severe spinal canal stenosis and cord compression at C6-C7, largely related to central di sc osteophyte complex. Follow-up MR can be considered to further evaluate, as indicated. Moderate degenerative spondylosis throughout the remainder of the cervical spine, with extensive face t arthropathy and multilevel neural foraminal narrowing. 4 mm anterolisthesis of C7 over T1. Reviewed, dictated and finalized at location M. Impression: No fracture of the cervical spine. Moderate to severe spinal canal stenosis and cord compression at C6-C7, largely related to central disc osteophyte complex. Follow-up MR can be considered to further evaluate, as indicated. Moderate degenerative spondylosis throughout the remainder of the cervical spin e, with extensive facet arthropathy and multilevel neural foraminal narrowing. 4 mm anterolisthesis of C7 over T1.
--- NOTE | ~2023-04-20 | CT_ITS ---
Noncontrast CT scan of the thoracic spine CLINICAL HISTORY: Back pain, status post fall TECHNIQUE: Axial noncontrast imaging of the thoracic spine was performed. Sagittal and coronal reform atted images were constructed. Dose reduction technique was used on this scan by utilizing automated exposure control and iterative reconstruction technique. The dose-length product (DLP) was 1705.71 mG y-cm. FINDINGS: There is no fracture or subluxation of the thoracic spine. Vertebral bodies maintain normal height and alignment. Intervertebral disc spaces are relatively well preserved throughout the thorac ic spine. There are extensive flowing anterior osteophytes throughout most of the thoracic spine, com patible with DISH. There are scattered mild facet joint degenerative changes. Possible mild central c anal stenosis at T9-T10 related to facet arthropathy. There is probable moderate central canal stenosis at L1-L2 related to disc bulge and facet arthropath y. Probable mild to moderate canal stenosis at L2-L3 related to disc bulge and facet arthropathy. Paravertebral soft tissues are unremarkable. Impression: No fracture or subluxation of the thoracic spine. Extensive DISH. Probable mild canal stenosis at T9-T10 related to facet arthropathy. Probable moderate central canal stenosis at L1-L2 and L2-L3, related to disc bulge and facet arthropa thy at these levels. Reviewed, dictated and finalized at location . Impression: No fracture or subluxation of the thoracic spine. Extensive DISH. Probable mild canal stenosis at T9-T10 related to facet arthropathy. Probable moderate central canal stenosis at L1-L2 and L2-L3, related to disc bu lge and facet arthropathy at these levels.
--- NOTE | ~2023-04-20 | CT_ITS ---
CT head without contrast Indication: Head injury COMPARISON: 12/27/2022 Technique: Serial scans were obtained through the brain without the administration of contrast. Dose reduction technique was used on this scan by utilizing automated exposure control and iterative recon struction technique. The dose-length product (DLP) was 681.00 mGy-cm. Findings: There is acute parenchymal hemorrhage in the superior right frontoparietal region, with int raparenchymal hematoma measuring 3.7 x 3.0 x 4.0 cm in extent. There is a small acute subdural hemato ma extending along the right side of the falx cerebri. There is probable minimal subarachnoid hemorrh age in the superior right frontal lobe and superior right parietal lobe. Small amount of acute intrav entricular hemorrhage is present, with hyperdense blood products layering in the atrium of the right lateral ventricle. Probable additional minimal subarachnoid hemorrhage in the left temporal lobe note d. No The ventricles and subarachnoid spaces are dilated, consistent with mild atrophy. Low attenuation re gions are seen within the periventricular white matter bilaterally, likely representing changes from chronic microvascular ischemic disease. There is no midline shift. The visualized paranasal sinuses and mastoid air cells are clear. Impression: 3.7 x 3.0 x 4.0 cm acute parenchymal hematoma in the superior right frontoparietal region. No midline shift. Small acute subdural hemorrhage along the right side of the falx cerebri. Small amount of subarachnoid hemorrhage in the high right frontal and parietal lobes, and probably in the left temporal lobe. Atrophy and chronic white matter changes, as above. Reviewed, dictated and finalized at location . Impression: 3.7 x 3.0 x 4.0 cm acute parenchymal hematoma in the superior right frontoparie lisa region. No midline shift. Small acute subdural hemorrhage along the right side of the falx cerebri. Small amount of subarachnoid hemorrhage in the high right frontal and parietal lobes, and probably in the left temporal lobe. Atrophy and chronic white matter changes, as above.
[2023-04-20 23:14] VITALS: BP 147/84; PULSE 76; RESP 16; TEMP 36.4; O2SAT 96
[2023-04-21] VITALS (28 sets, daily range): BP systolic 125–173; BP diastolic 60–95; PULSE 66–101; RESP 11–25; TEMP 36.6–39.2; O2SAT 91–100; BMI 25.9; BMI 26.1
--- NOTE | 2023-04-21 00:18 | ED.GENADULT ---
HPI - General Adult General Chief complaint: Fall Stated complaint: fall, back pain Time Seen by Provider: 04/20/23 23:45 History of Present Illness HPI narrative: This is an 78-year-old male presenting from long term after a fall. The patient has difficulty communicating and only answers in yep and nope. His answers are not consistent between different questions. patient cannot move the left side of his body. I called the long term and his daughter and that is a new finding. Not on blood thinners. Related Data Home Medications Medication Instructions Recorded Confirmed donepezil 10 mg tablet 10 mg PO HS 12/08/22 12/08/22 escitalopram oxalate 20 mg tablet 20 mg PO DAILY 12/08/22 12/08/22 gabapentin 400 mg capsule 400 mg PO TID 12/08/22 12/08/22 meclizine 25 mg tablet 25 mg PO BID 12/08/22 12/08/22 memantine 10 mg tablet 10 mg PO BID 12/08/22 12/08/22 montelukast 10 mg tablet 10 mg PO DAILY 12/08/22 12/08/22 trazodone 150 mg tablet 150 mg PO HS 12/08/22 12/08/22 triamcinolone acetonide 0.1 % 0.1 applic topical BID PRN Dry Skin 12/08/22 12/08/22 topical cream Allergies Allergy/AdvReac Type Severity Reaction Status Date / Time No Known Allergies Allergy Verified 04/20/23 23:19 [facility] Past Medical History Medical History Asthma Dementia Depression with anxiety History of dementia Intention tremor Vertigo Surgical History Surgical History H/O cataract extraction H/O Spinal surgery Family History Family History Unknown No problems noted. Social History Social History Social History: The patient is . He has 2 children. 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 He has 2 daughters listed as his contacts and Agata Shantonino is the power finance attorney. Code status full code Smoking status: Former smoker Alcohol intake: former Substance use: never Spiritual care concerns: No Exam Narrative: APPEARANCE: Patient appears chronically unwell, he answers in yep and nope Head: abrasion over the left eyebrow without crepitus EYES: EOMI, NOSE: Atraumatic NECK: Trachea midline RESPIRATORY: No increased rate of breathing, clear to auscultation CARDIOVASCULAR: RRR, no peripheral edema ABDOMINAL: Non-distended, soft nontender no guarding or rebound MUSCULOSKELETAl: No obvious deformities NEURO: Alert. resting tremor of the right hand and can follow commands with the right side of his body, left-side of body is flaccid SKIN:: Warm, dry. Normal color PSYCHIATRIC: Difficulty speaking Course Vital Signs Vital signs: Vital Signs Temperature 97.6 F 04/20/23 23:14 Pulse Rate 76 04/20/23 23:14 Respiratory Rate 16 04/20/23 23:14 Blood Pressure 147/84 H 04/20/23 23:14 Pulse Oximetry 96 04/20/23 23:14 Oxygen Delivery Room Air 04/20/23 23:14 Temperature 97.6 F 04/20/23 23:14 Pulse Rate 76 04/20/23 23:14 Respiratory Rate 16 04/20/23 23:14 Blood Pressure 147/84 H 04/20/23 23:14 Pulse Oximetry 96 04/20/23 23:14 Oxygen Delivery Room Air 04/20/23 23:14 Medical Decision Making [facility] [place] Narrative Medical decision making narrative: -Presentation: 78-year-old male presenting after a fall. He has trauma to his head and new left-sided neurologic deficits. CT head has been ordered. -DDX includes but is not limited to: Intracranial hemorrhage, ischemic stroke, TBI, concussion, sepsis, UTI pneumonia -Co-morbidities complicating care: dementia, dysphasia, depression, COPD -Social determinants of health: patient lives in a long term. Agata GASPAR Daughter [phone] Ksenia Herron Daughter [phone] -External Chart Review: Review of previous ER and Neurology notes from earlier this year noti
--- NOTE | 2023-04-21 00:25 | PC.NURSE ---
Medical Malpractice Paralegal called patient's daughter Agata who is patient's POA. Patient's daughter informed writer producer that she is out of the country and gave her other sister's phone number. Patient's other daughter is Ksenia Herron [phone]. Patient's daughter, Agata, denied any history of CVA or TIA. She reports patient is at his normal mentation and patient is able to shuffle and ambulate normally. She also reports patient is displaying his normal speech pattern.
[2023-04-21 00:57] LABS: Appearance Urine Clear (Clear); Bilirubin Urine Negative (Negative); Blood Urine Negative (Negative); Color Urine Yellow (Yellow); Glucose Urine UA Negative (Negative); Ketones Urine Negative (Negative); Leukocyte Esterase Ur Negative LEU/UL (Negative); Nitrate Urine Negative (Negative); Protein Urine Negative (Negative); pH Urine 6.5 (5.0-9.0)
[2023-04-21 01:03] LABS: Basophils Percent Auto 0.4 % (0.2-1.2); Eosinophils Absolute Auto 0.1 K/mm3 (0-0.3); Eosinophils Percent Auto 0.8 % (0-4.4); Hematocrit 39.9 % (42.0-52.0); Hemoglobin 13.5 g/dL (14.0-18.0); Immature Granulocyte Absolute 0.03 K/mm3 (0.00-0.031); Immature Granulocyte Percent A 0.3 % (0-0.5); Lymphocytes Absolute Auto 1.28 K/mm3 (0.9-3.2); Lymphocytes Percent Auto 12.6 % (18.3-44.2); Mean Corpuscular HGB Conc 33.8 g/dl (32-36); Mean Corpuscular Hemoglobin 30.1 pg (26-34); Mean Corpuscular Volume 89.1 fl (80-100); Mean Platelet Volume 9.2 fl (7.4-10.4); Monocytes Absolute Auto 0.8 K/mm3 (0.1-0.6); Monocytes Percent Auto 7.9 % (2.6-8.5); Platelet Count Result 232 k/mm3 (150-375); Red Blood Count 4.48 M/mm3 (4.6-6.20); Red Cell Distribution Width 12.7 % (11.5-14.5); White Blood Count 10.2 K/mm3 (4.5-10.0)
[2023-04-21 01:09] LABS: Alanine Aminotransferase 19 U/L (6-50); Albumin Level 4.3 g/dL (3.5-5.1); Alkaline Phosphatase 85 U/L (38-126); Anion Gap 10 mmol/L (8-16); Aspartate Amino Transferase 25 U/L (17-59); Bilirubin,Total 0.7 mg/dL (0.2-1.3); Blood Urea Nitrogen 11 mg/dL (9-20); Carbon Dioxide 24 mmol/L (22-30); Chloride 98 mmol/L (98-107); Creatine Kinase 89 U/L (55-170); Estimated CRCL calculation 75 ml/min; Estimated Glomerular Filt Rate > 60; Glucose 117 mg/dL (65-110); Magnesium 1.9 mg/dL (1.6-2.3); Potassium 3.8 mmol/L (3.4-5.0); Sodium 132 mmol/L (137-145)
[2023-04-21 01:10] LABS: Add Urine Microscopic? NO
[2023-04-21 01:10] LABS: Lactic Acid Reflex 1.2 mmol/L (0.7-2.0)
[2023-04-21 01:15] LABS: Prothrombin Time 13.8 Seconds (11.1-14.7)
[2023-04-21 01:17] LABS: Partial Thromboplastin Time 26.2 SECONDS (22.3-36.8)
[2023-04-21 01:32] LABS: Troponin I 0.074 ng/mL (0.000-0.034)
[2023-04-21] MEDS: HYDROmorphone HCL INJ (*CRX) 1 MG/ML SYR 0.5 MG IV PUSH ×2 (01:42→06:01)
[2023-04-21 02:06] LABS: Influenza A QL RT-PCR Negative (Negative); Influenza B QL RT-PCR Negative (Negative); RSV RNA, RT-PCR Negative (Negative); SARS-CoV-2 RNA PCR Negative (Negative)
--- NOTE | 2023-04-21 03:50 | ADMGEN ---
This patient, Lucien Martinez, was admitted to [facility] Surg Room 317-02. Patient/family oriented to hospital policies and general routines including ID bracelet, bed and alarms, visiting hours, pain management, procedures, bathroom and other care routines, personal items, smoking policy, room service/diet, and visiting hours. Information on how to activate the Rapid Response Team has been discussed. Patient/Family are encouraged to report perceived risks to care and to ask questions if they do not understand what they are told or what they should do.
[2023-04-21] MEDS: LORazepam INJ (*CRX) 2 MG/ML VIAL IV PUSH (03:53)
--- NOTE | 2023-04-21 04:11 | PC.NURSE ---
Contacted [facility] at this time to gather more information about medication and prior level of ability. Nurse on duty was able to verify pt's medications over the phone, however was unable to give much history or prior level on pt, due to it being her first night working there. Pt's POA is currently on vacation out of the country. Nurse on duty at [facility] this shift, stated that she notified pt's daughter Anya that pt was being sent to the ER for evaluation due to a fall there. Pt is only saying yep to all questions asked, regardless if appropriate response or not. Pt's left arm is flaccid at this time, and right arm is tremoring pretty severly upon arrival from the ER. Nurse at [facility] was unable to confirm if tis was pt's prior level at their facility.
--- NOTE | 2023-04-21 07:46 | PM.IMHP ---
H&P: HPI History of Present Illness Date/Time: 04/21/23 07:46 Chief Complaint: Fall Narrative: Patient's prior history, history is taken from ER physician 78 years old lady with history of dementia, asthma, anxiety, vertigo, brought to ED from assisted because of fall. Per assisted report, patient fell on the left side of his body, sustained pain. Patient cannot move left side of body. Patient was brought to ED for evaluation and treatment. He had DTs, patient was found to have intraparenchymal hemorrhage in the right parietal lobe with extension to the right ventricle with surrounding edema. ER physician discussed with the patient POA, patient's daughter. Patient family wishes comfort care Review of Systems Review of Systems: Patient is confused, I am unable to review of system completed reset above PMFSH Past Medical History Medical History Asthma Dementia Depression with anxiety History of dementia Intention tremor Vertigo Surgical History Surgical History H/O cataract extraction H/O Spinal surgery Family History Family History Unknown No problems noted. Social History Social History Social History: The patient is . He has 2 children. 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 He has 2 daughters listed as his contacts and Agata Doyle is the power deputy prosecuting attorney. Code status full code Smoking status: Former smoker Alcohol intake: former Substance use: never Spiritual care concerns: No Meds Home Medications and Allergies Home Medications Medication Instructions Recorded Confirmed Type donepezil 10 mg tablet 10 mg PO HS 12/08/22 04/21/23 History escitalopram oxalate 20 mg tablet 20 mg PO DAILY 12/08/22 04/21/23 History gabapentin 400 mg capsule 400 mg PO TID 12/08/22 04/21/23 History meclizine 25 mg tablet 25 mg PO BID 12/08/22 04/21/23 History memantine 10 mg tablet 10 mg PO BID 12/08/22 04/21/23 History montelukast 10 mg tablet 10 mg PO DAILY 12/08/22 04/21/23 History trazodone 150 mg tablet 150 mg PO HS 12/08/22 04/21/23 History triamcinolone acetonide 0.1 % 0.1 applic topical BID PRN Dry Skin 12/08/22 04/21/23 History topical cream cyanocobalamin (vitamin B-12) 500 mcg PO DAILY 04/21/23 04/21/23 History 1,000 mcg tablet famotidine 40 mg BYMOUTH DAILY 04/21/23 04/21/23 History Allergies Allergy/AdvReac Type Severity Reaction Status Date / Time Beta-Blockers Allergy Rash Verified 04/21/23 10:30 (Beta-Adrenergic Bloc Vital Signs Vital Signs - 24 hr 04/20/23 23:14 04/21/23 01:08 04/21/23 01:15 Temperature 97.6 F Pulse Rate 76 87 87 Respiratory Rate 16 20 22 H Blood Pressure 147/84 H Pulse Oximetry 96 Oxygen Delivery Room Air 04/21/23 01:16 04/21/23 01:30 04/21/23 01:45 Temperature Pulse Rate 83 101 H 91 Respiratory Rate 19 25 H 23 H Blood Pressure 162/89 H Pulse Oximetry Oxygen Delivery 04/21/23 01:46 04/21/23 02:00 04/21/23 02:01 Temperature Pulse Rate 95 86 83 Respiratory Rate 15 15 11 L Blood Pressure 170/95 H 160/76 H Pulse Oximetry Oxygen Delivery 04/21/23 02:16 04/21/23 02:17 04/21/23 02:30 Temperature Pulse Rate 70 71 69 Respiratory Rate Blood Pressure 138/90 Pulse Oximetry Oxygen Delivery 04/21/23 02:31 04/21/23 02:45 04/21/23 02:46 Temperature Pulse Rate 66 70 66 Respiratory Rate Blood Pressure 127/64 127/60 Pulse Oximetry Oxygen Delivery 04/21/23 03:00 04/21/23 03:01 04/21/23 03:15 Temperature Pulse Rate 66 67 67 Respiratory Rate Blood Pressure 130/65 Pulse Oximetry Oxygen Delivery 04/21/23 03:16 04/21/23 03:37 04/21/23 04:02 Temperature 97.9 F Pulse Rate 66 92 Respiratory Rate
[2023-04-21] MEDS: LACTATED RINGERS 1,000 ML 75 ML IV CONT ×2 (09:11→22:29)
[2023-04-21] MEDS: MORPHINE SULFATE (*CRX) 2 MG/ML INJ IV PUSH ×3 (09:13→18:47)
[2023-04-21] MEDS: GABAPENTIN 400 MG CAPSULE PO ×3 (09:17→17:06)
[2023-04-21] MEDS: LORazepam INJ (*CRX) 2 MG/ML VIAL 0.5 MG IV PUSH ×2 (10:15→17:07)
--- NOTE | 2023-04-21 14:24 | PCSTNOTE ---
Patient was awake and alert but refused oral feedings today, repeatedly saying, Nope. When asked if he did not want the swallow evaluation today, patient stated, Not today. Will try later or tomorrow.
[2023-04-21] MEDS: ACETAMINOPHEN 325 MG TABLET 650 MG PO (18:55)
--- NOTE | 2023-04-21 20:13 | PC.NURSE ---
called CARIDAD Carlos family requesting ativan frequency increase pt on comfort care, will d.c hospice tomorrow per nursing report.
--- NOTE | 2023-04-21 20:20 | PC.NURSE ---
ativan increased to 1 mg ativan q4hrs prn.
[2023-04-21] MEDS: LORazepam INJ (*CRX) 2 MG/ML VIAL 1 MG IV PUSH (22:05)
[2023-04-21] MEDS: traZODone HCL 50 MG TABLET 150 MG PO (22:08)
[2023-04-22] MEDS: LORazepam INJ (*CRX) 2 MG/ML VIAL 1 MG IV PUSH ×3 (03:15→11:21)
[2023-04-22 03:58] LABS: Troponin I 0.284 ng/mL (0.000-0.034)
--- NOTE | 2023-04-22 04:02 | PC.NURSE ---
pt comfort care, critical trop [phone] called DO Hopen to report, awaiting call back.
[2023-04-22 05:03] VITALS: BP 151/91; PULSE 89; RESP 20; TEMP 37.2; O2SAT 97
[2023-04-22] MEDS: MORPHINE SULFATE (*CRX) 2 MG/ML INJ IV PUSH ×2 (06:19→11:21)
--- NOTE | 2023-04-22 09:48 | PCSTNOTE ---
Please refer to the Bedside Swallow Evaluation in the EMR. Please note, silent aspiration cannot be ruled out at bedside.
--- NOTE | 2023-04-22 10:40 | PM.DS ---
DS: Admitting Diagnosis Discharge Date Today Admitting Diagnosis Intraparenchymal hematoma of brain: ?Code(s): S06.33AA - Contusion and laceration of cerebrum, unspecified, with loss of consciousness status unknown, initial encounter ?Status:?Acute (2) Dementia: ?Code(s): F03.90 - Unspecified dementia, unspecified severity, without behavioral disturbance, psychotic disturbance, mood disturbance, and anxiety ?Status:?Acute (3) Altered mental status: ?Code(s): R41.82 - Altered mental status, unspecified ?Status:?Acute (4) Asthma: ?Code(s): J45.909 - Unspecified asthma, uncomplicated ?Status:?Acute (5) Depression with anxiety: ?Code(s): F41.8 - Other specified anxiety disorders ?Status:?Acute (6) Intention tremor: ?Code(s): G25.2 - Other specified forms of tremor ?Status:?Acute DS: Discharge Diagnosis Discharge Diagnosis (1) Intraparenchymal hematoma of brain: Code(s): S06.33AA - Contusion and laceration of cerebrum, unspecified, with loss of consciousness status unknown, initial encounter Status: Acute (2) Dementia: Code(s): F03.90 - Unspecified dementia, unspecified severity, without behavioral disturbance, psychotic disturbance, mood disturbance, and anxiety Status: Acute (3) Altered mental status: Code(s): R41.82 - Altered mental status, unspecified Status: Acute (4) Asthma: Code(s): J45.909 - Unspecified asthma, uncomplicated Status: Acute (5) Depression with anxiety: Code(s): F41.8 - Other specified anxiety disorders Status: Acute (6) Intention tremor: Code(s): G25.2 - Other specified forms of tremor Status: Acute Plan Patient has history of dementia, patient mental status change and paralysis of left-sided body of the new finding. CT suggests intraparenchymal hemorrhage that is most likely resulting in new changes of mental status and paralysis of left-sided body Patient condition is guarded, prognosis poor. Have a long discussion with the patient's granddaughter and bedside in presents of patient's nurse, and and I also discussed with the patient's daughter with video conversation at bedside. Patient's family understand the patient's condition, there wishes comfort care now and transfer patient to hospice care when patient hospice care is set up Will hold any further workup, including labs, images study per patient's family requests, and provided patient medications that make making patient comfortable Discussed with patient's nurse and care process manager, there were care with hospice care team and looking for placement for the patient DS: Summary Hospital Course Reason for hospitalization: Altered mental status Hospital Course: Patient has history of dementia, patient mental status change and paralysis of left-sided body of the new finding. CT suggests intraparenchymal hemorrhage that is most likely resulting in? new changes of mental status and paralysis of left-sided body Patient condition is guarded, prognosis poor.? Have a long discussion with the patient's granddaughter and bedside in presents of patient's nurse, and and I also discussed with the patient's daughter with video conversation at bedside.? Patient's family understand the patient's condition, there wishes comfort care now and transfer patient to hospice care when patient hospice care is set up Will hold any further workup, including labs, images study per patient's family requests, and provided patient medications that make making patient comfortable Discussed with patient's nurse and care process manager, hospice care team will set up hospice care at a alf facility pt will be discharged today Status at Discharge Cognitive/behavioral status at discharge: Patient condition is guarded Time Spent with Patient Time attestation: Total time spent providing and/or coordinating discharge services: Exam Narrative: Da
[2023-04-22] MEDS: LACTATED RINGERS 1,000 ML 75 ML IV CONT (11:22)
[2023-04-22 14:00] VITALS: BP 157/101; PULSE 98; RESP 20; TEMP 36.6; O2SAT 91
== END 2023-04-22 14:40 | disposition hospice, inpatient (51) ==
LOC: ANHED 04-21 01:28 → ANH3MEDSUR 04-22 10:33
PROVIDERS: Admitting Provider Internal Medicine; Emergency Provider Emergency Medicine; PCP Family Medicine; Visit Provider Hospitalist
DX: S06.5XAA Traumatic subdural hemorrhage with loss of consciousness status unknown, initial encounter (principal); W19.XXXA Unspecified fall, initial encounter; R41.82 Altered mental status, unspecified; R29.898 Other symptoms and signs involving the musculoskeletal system; R42 Dizziness and giddiness; M48.02 Spinal stenosis, cervical region; M47.813 Spondylosis without myelopathy or radiculopathy, cervicothoracic region; G95.20 Unspecified cord compression; Z20.822 Contact with and (suspected) exposure to COVID-19; G25.2 Other specified forms of tremor; J45.909 Unspecified asthma, uncomplicated; F03.90 Unspecified dementia, unspecified severity, without behavioral disturbance, psychotic disturbance, mood disturbance, and anxiety; F48.1 Depersonalization-derealization syndrome; Z87.891 Personal history of nicotine dependence; Z79.52 Long term (current) use of systemic steroids; Z79.899 Other long term (current) drug therapy
CPT/HCPCS: 36415; 70450; 72125; 72128; 80053; 81003; 82550; 83605; 83735; 84484; 85025; 85610; 85730; 87637; 92610; 96361; 96374; 96375; 96376; 99285; A9270; G0378; J1170; J2060; J2270; J7120